=== PATIENT | male | born 1940 | race Hispanic/Latino ===

== ENCOUNTER 2020-11-21 06:28 | Day surgery (SDC) | payer MEDICARE ==
[2020-11-21] MEDS ORDERED: ASPIRIN EC 325 MG TAB PO NR (07:02)
[2020-11-21 07:44] LABS: BUN/Creatinine Ratio 19; Blood Urea Nitrogen 21 mg/dL (9-20); Calcium 10.2 mg/dL (8.4-10.2); Hemolysis Index 71
[2020-11-21 07:51] LABS: Basophils % (Auto) 0.8 % (0.0-1.8); Eosinophils # (Auto) 0.4 K/mm3 (0.0-0.4); Eosinophils % (Auto) 6.5 % (0.0-4.3); Hematocrit 43.7 % (35.5-45.6); Hemoglobin 14.6 gm/dl (11.8-15.2); INR 0.96 (0.87-1.13); Lymphocytes # (Auto) 2.1 K/mm3 (1.2-5.4); Lymphocytes % (Auto) 38.5 % (13.4-35.0); Mean Corpuscular HGB Conc 34 % (32-34); Mean Corpuscular Volume 96 fl (84-94); Monocytes # (Auto) 0.7 K/mm3 (0.0-0.8); Monocytes % (Auto) 13.3 % (0.0-7.3); Platelet Count 202 K/mm3 (140-440); Red Blood Count 4.56 M/mm3 (3.65-5.03); Red Cell Distribution Width 14.2 % (13.2-15.2)
[2020-11-21] MEDS ORDERED: SODIUM CHLORIDE 0.9% 500 ML 500 ML IV SCH (08:00)
[2020-11-21] MEDS ORDERED: HEPARIN/NS 5000 UNIT/500ML 1,000 ML IR ONE (08:17)
[2020-11-21] MEDS ORDERED: HEPARIN 10,000 UNITS/10 ML VIAL ONE (08:17)
[2020-11-21] MEDS: MIDAZOLAM 2 MG/2 ML INJ ONE ×3 (08:43→09:48)
[2020-11-21] MEDS: fentaNYL 100 MCG/2 ML INJ ONE ×3 (08:43→09:48)
[2020-11-21] MEDS: LIDOCAINE (2%) 20 MG/1 ML VIAL 20 ML MDV INFILTRATI ONE ×3 (08:44→09:13)
[2020-11-21] MEDS: VERAPAMIL 5 MG/2 ML INJ ONE ×2 (08:46→09:01)
[2020-11-21] MEDS ORDERED: HEPARIN/NS 5000 UNIT/500ML 500 ML IR ONE (09:35)
[2020-11-21] MEDS ORDERED: LIDOCAINE (2%) 20 MG/1 ML VIAL 20 ML MDV INFILTRATI ONE (09:48)
--- NOTE | 2020-11-21 10:39 | Cardiac Catherization Report ---
DATE OF SERVICE: 11/21/2020 INDICATIONS: The patient is a 80-year-old gentleman with history of essential hypertension, frequent ventricular ectopy, hyperlipidemia, was noted to have frequent PVCs and further evaluation showed echocardiogram showed grade II diastolic dysfunction with mild LVH and ejection fraction 55-60%. Pharmacological stress testing showed ischemia in the apical and inferoseptal segments. Hence, scheduled for cardiac catheterization. The patient was recommended cardiac catheterization to rule out underlying coronary disease. The patient is aware of the procedure, potential complications and alternatives of therapy available. DESCRIPTION OF PROCEDURE: The patient was brought to the catheterization laboratory in a fasting condition. The patient was evaluated for moderate sedation and was felt to be an appropriate candidate for moderate sedation. Received IV Versed and fentanyl. Subsequently, local anesthesia was given in the right wrist area and a right radial artery access was obtained using 21-gauge arterial puncture needle. Subsequently, a 5-Monegasque slender sheath was introduced. A 5-Monegasque multipurpose catheter was used; however, there is a 360-degree loop in the elbow area, hence could not advance the catheter. Subsequently, access was changed to right femoral area. Initial using under fluoroscopy, right femoral artery puncture was made using 5-Monegasque micropuncture needle. Initial sheath came out. Hence, a second puncture was made after obtaining hemostasis after first puncture. A 6 Monegasque sheath was introduced. A 5-Monegasque multipurpose catheter was used to obtain the angiograms of the left coronary artery in multiple views followed by angiograms of the right coronary artery using 6-Monegasque JR4 catheter. JR4 catheter was used to obtain the left ventricular end-diastolic pressure and left ventriculogram done in HIRSCH projection. At the end of the procedure, catheter and sheath were removed and good hemostasis was achieved with manual pressure. Radial band was applied in the right radial artery to obtain hemostasis. Good hemostasis was achieved. The patient was monitored throughout the procedure with pulse oximetry and EKG monitoring and hemodynamic monitoring. The patient tolerated the procedure well. The patient's moderate sedation started at 8:51 a.m. and ended at 10:01 a.m. The patient at the end of the procedure is communicating normally, breathing normally with no focal deficits. The patient was transferred to the room in stable condition. Following findings were noted. HEMODYNAMICS: Opening aortic pressure 125/57. Left ventricular pressure 125/20. No gradient across the aortic valve. Estimated ejection fraction 50%. Left ventriculogram done in HIRSCH projection using hand injection and limited amount of dye showed left ventricular size to be upper limits of normal, contractility lower limits of normal in the range of 50%. End-diastolic pressure of 20 mmHg noted. Right coronary artery large vessel has mild smooth irregularity of 10-20% proximally and in the mid eccentric 30-40% lesion noted. Distally, large vessel without any significant disease. Left coronary artery arises normally from left coronary cusp. Left main without any significant disease. LAD shows mild irregularities approaching 10-20% in the mid part. The LAD is relatively small caliber vessel not reaching the apex. Circumflex artery and its branch are without significant disease. FINAL IMPRESSION: 1. Left ventricular size is upper limits of normal with end diastolic pressure mildly elevated and ejection fraction lower limits of normal. 2. Mild to moderate coronary disease. At this time, the patient is not having any symptoms of angina. Considering the patient has only mild to moderate coronary artery disease, would continue aggressive risk factor modification and medical therapy. It is to be noted right radial artery was attempted; however, because of 360-degree loop, the access was changed to right femoral area. Findings were explained in detail to the patient. He understands. Good hemostasis was achieved in both the groin and the right radial artery. TID: [id number] RECEIPT: [id number] CAMILO/SHANTI BERNSTEIN
--- NOTE | 2020-11-21 11:32 | Electrocardiograph Report ---
[facility] Test Date: 2020-11-21 Test Time: 07:33:47 Pat Name: ALBIN CRUZ JR Department: Room: Gender: M Manager Service Desk: SRINI : 1940 Requested By: ANKIT CHIRINOS Order Number: [id number] Reading MD: Ankit Chirinos Measurements Intervals [place] Rate: 57 P: 54 WI: 176 QRS: 26 QRSD: 163 T: -15 QT: 464 QTc: 451 Interpretive Statements Sinus rhythm Ventricular trigeminy Right bundle branch block Probable anterolateral infarct, old ST depr, consider ischemia, anterolateral lds No previous ECG available for comparison Electronically Signed On 11-21-2020 11:31:50 EDT by Ankit Chirinos
--- NOTE | 2020-11-21 12:10 | Short Stay Summary ---
Short Stay Documentation Date of service: 11/21/20 - History H&P: obtained from office - Allergies and Medications Current Medications: Allergies No Known Allergies Allergy (Verified 11/21/20 07:01) Home Medications Medication Instructions Recorded Confirmed Last Taken Type Aspirin EC [Halfprin EC] 81 mg PO DAILY 11/21/20 11/21/20 11/20/20 History 81 mg AtorvaSTATin [Lipitor] 20 mg PO HS 11/21/20 11/21/20 11/20/20 History 20 mg Furosemide [Lasix TAB] 20 mg PO DAILY 11/21/20 11/21/20 11/20/20 History 20 mg Sodium Zirconium Cyclosilicate 1 package PO Q48HR 11/21/20 11/21/20 11/19/20 History [Lokelma] 1 package amLODIPine 10 mg PO DAILY 11/21/20 11/21/20 11/20/20 History 10 mg carvediloL [Coreg] 6.25 mg PO BID 11/21/20 11/21/20 11/20/20 History 6.25mg hydrALAZINE [Apresoline TAB] 100 mg PO BID 11/21/20 11/21/20 11/20/20 History 100 mg Active Medications Aspirin (Aspirin Ec 325 Mg Tab) 325 mg PO ONCE NR Stop: 11/21/20 18:00 Last Admin: 11/21/20 07:22 Dose: 325 mg Documented by: Sodium Chloride (Nacl 0.9% 500 Ml) 500 mls @ 50 mls/hr IV DIRECT JOHN Stop: 11/21/20 17:59 Last Admin: 11/21/20 07:23 Dose: 50 mls/hr Documented by: - Physical exam Integumentary: other (clean,dry, tegaderm intact. NO bleeding or hematoma) - Brief post op/procedure progress note Date of procedure: 11/21/20 Pre-op diagnosis: abnormal stress Post-op diagnosis: other (normal coronaries) Anesthesia: local Estimated blood loss: minimal - Disposition Condition at discharge: Good Disposition: 01 HOME / SELF CARE / HOMELESS - Discharge Diagnoses (1) Normal coronary arteries Status: Acute Short Stay Discharge Plan Activity: advance as tolerated Diet: low fat, low cholesterol, low salt Wound: keep clean and dry, per your surgeon's advice Follow up with: ONOFRE WHITE [Other] - 7 Days MARY WHITE MD [Staff Physician] - 12/24/20 1:00 pm
[2020-11-21 13:38] VITALS: BP 132/63
== END 2020-11-21 14:15 | disposition home or self-care (01) ==
LOC: CATHLABREC 06:28
PROVIDERS: ATTEND Internal Medicine
DX: R93.1 Abnormal findings on diagnostic imaging of heart and coronary circulation (principal); I25.10 Atherosclerotic heart disease of native coronary artery without angina pectoris; I10 Essential (primary) hypertension; I49.3 Ventricular premature depolarization; E78.00 Pure hypercholesterolemia, unspecified; Z79.82 Long term (current) use of aspirin; Z79.899 Other long term (current) drug therapy; Z98.890 Other specified postprocedural states
CPT/HCPCS: 36415; 80048; 85025; 85610; 85730; 93005; 93458; 99156; 99157; C1769; C1894; J1644; J2250; J3010; J7040; Q9967